=== PATIENT | male | born 1970 | race Hispanic/Latino ===

== ENCOUNTER 2019-03-11 09:11 | Inpatient (IN) | payer OTHER ==
[2019-03-11] MEDS ORDERED: Iopamidol 370 76% 100 ML VIAL ONE (09:54)
--- NOTE | 2019-03-11 11:16 | PDOC.FPRHP ---
- History of Present Illness Chief Complaint: Chest Pain History of Present Illness: 48yo male with h/o HLD, HTN, DMII presents for typical chest pain. Pt states he had acute onset of substernal, pressure-like pain, rated 9/10, radiating to jaws at 0630 this AM. No associated SOB, n/v. Associated diaphoresis. Presented to [place] ED. Given ASA, Plavix, and Nitro SL and started on Nitro gtt. Pain as improved to 6/10 per pt but still present without radiation or diaphoresis. No similar pain in past. No abd pain. Recent illness, fever/ chills. Pt states he is a binge drinker, last drink last night, 30+ beers, has had withdrawals in past. No vomiting, coughing up blood, burning chest pain. No known passing out last night. ED Course: [place] - ASA, Plavix, Nitro SL, and nitro gtt [facility] - Cont nitro gtt, Cards consulted, trop trending. - Home Medications Medication Instructions Recorded Confirmed Type Amlodipine [Norvasc] 5 mg PO DAILY 03/11/19 03/11/19 History Aspirin [Ecotrin] 81 mg PO DAILY 03/11/19 03/11/19 History Atorvastatin Calcium [Lipitor] 40 mg PO DAILY 03/11/19 03/11/19 History Glimepiride [Amaryl] 3 mg PO QAM- 03/11/19 03/11/19 History Lisinopril 30 mg PO DAILY 03/11/19 03/11/19 History Sertraline HCl [Zoloft] 75 mg PO DAILY 03/11/19 03/11/19 History busPIRone HCl [Buspar] 5 mg PO BID 03/11/19 03/11/19 History metFORMIN [Glucophage] 1,000 mg PO BID- 03/11/19 03/11/19 History - History PMHx: DMII, HTN, HLD, DMII PSHx: None FHx: Dad with NE @ 88, Mom with NE @ 60 Social: Social smoker "smoke when he drinks." Binge drinker, last drink last night, 30+ beers, has had withdrawals in past. No illicit. . Lives in [place]. - Review of Systems General: denies: fever/chills, weight/appetite/sleep changes, night sweats Eyes: denies: vision changes ENT: denies: nasal congestion, rhinorrhea Respiratory: denies: cough, congestion, shortness of breath Cardiovascular: reports: chest pain. denies: palpitation, edema Gastrointestinal: denies: nausea, vomiting, diarrhea, constipation, abdominal pain, GI bleeding Genitourinary: denies: incontinence, dysuria Skin: denies: rashes Musculoskeletal: denies: pain Psychological: reports: depression - Vital signs BP: 143/76 HR: 70 RR: 18 Tmax: 97.8 Pox: 99% on RA Wt: 97kg - Physical Exam Constitutional: NAD, awake, alert and oriented, well developed (resting comfortably.) HEENT: EOMI, conjunctiva clear, grossly normal hearing, normal nasal mucosa, MMM , oropharynx clear Neck: supple, trachea midline Chest: no-tender to palpation Heart: RRR, normal S1/S2, no murmurs/rubs/gallops, pulses present (slightly decrease in RUE as compared to LUE however has scar over R radial pulse.), no edema Lungs: CTAB, no respiratory distress, good air movement, no rales/rhonchi, no wheezing Abdomen: soft, non-tender, bowel sounds present, no masses/distention Musculoskeletal: normal structure, normal tone Neurological: no focal deficit, normal sensation Skin: no rash/lesions Heme/Lymphatic: no unusual bruising or bleeding Psychiatric: normal mood and affect, intact recent and remote memory FMR H&P: Results - EKG Interpretation EKG: NSR. Good R wave progression. No ST or T wave changes. Normal axis. Normal EKG. - Radiology Interpretation Chest x-ray Status: image reviewed by me, report reviewed by me (No acute CPP) FMR H&P: A/P - Problem List (1) Unstable angina Current Visit: Yes Status: Acute (2) HTN (hypertension) Current Visit: Yes Status: Chronic Code(s): I10 - ESSENTIAL (PRIMARY) HYPERTENSION Qualifiers: Hypertension type: essential hypertension Qualified Code(s): I10 - Essential (primary) hypertension (3) DM2 (diabetes mellitus, type 2) Current Visit: Yes Status: Chronic Qualifiers: Diabetes mellitus ocean transportation intermediary insulin use: without ocean transportation intermediary use (4) HLD (hyperlipidemia) Current Visit: Yes Status: Chronic Code(s): E78.5 - HYPERLIPIDEMIA, UNSPECIFIED - Plan 48yo M with h/o HTN, HLD, DMII presents with unstable angina. #Unstable angina - sxs started this AM, typical, substernal, partial relieved with nitro but still present on nitro gtt - Trop <0.010 -> 0.017 - EKG WNL, no ST or T wave changes - Cards consulted from ED, Dr. Carpenter, plan to cath, apprec recs - Trend trops, tele monitoring - CXR no acute CPP - Consider GI cause, will give GI cocktail if no cardiac disease #HTN - Cont home meds, monitor #DMII - Hyperglycemic protocol - ACHS accuchecks, cont home meds #EtOH abuse - ASE protocol - EtOH lv #Depression - cont home meds Code: Full IVF: SL Diet: NPO for cath, HH/CC after DVT: SCDs PCP: CC - Dr. Schmitz in [place] Dispo: Admit to tele vs ICU pending heart cath. Anticipate hospitalization > 48hours. FMR H&P: Upper Level - Plan Date/Time: 03/11/19 1115 I, Reinier Tapia MD, have evaluated this patient and agree with findings/ plan as outlined by chief internal auditor resident. Pertinent changes/additions are listed here. Unstable Angina - Nitro drip currently - Patient to undergo heart catheterization emergently by Dr. Carpenter - Further management pending those results Alcohol abuse - Will draw alcohol level - ASE protocol DM, HTN, HLD - Continue home regimen and optimize medical management PCP: GERI/[facility] CODE STATUS: FULL CODE Disposition: Stable, will await results of catheterization and admit for further evaluation. Addendum - Attending - Attending Attestation Date/Time: 03/11/19 1100 I personally evaluated the patient and discussed the management with Dr. Sood/ Willie. I agree with the History, Examination, Assessment and Plan documented above with any addition or exceptions noted below. Patient with history of HTN, DM2, and HLD here with sudden onset of typical chest pain with radiation to jaw. He denies shortness of breath. Symptoms somewhat improved with NItro but recurred so placed on nitro drip and transferred here. His exam is overall benign. Labs reassuring. EKG shows NSR with no ST segment changes. Cardiology consulted due to concern for UA or ACS, and he will be going directly to the labor conciliator. Further mgmt per that result.
[2019-03-11] MEDS ORDERED: Lidocaine 1% (PF) 30 ML VIAL ONE (11:41)
[2019-03-11] MEDS ORDERED: Heparin (Artline) 1,000 ML ONE (11:41)
[2019-03-11] MEDS ORDERED: Midazolam HCl 2 mg/2 ml Vial ONE (12:31)
[2019-03-11] MEDS ORDERED: Nitroglycerin 0.4 MG TAB (25 Tab Bottle) SL PRN (12:57)
[2019-03-11] MEDS ORDERED: Sodium Chloride 0.9% 200 ML IV PRN (12:57)
[2019-03-11] MEDS ORDERED: Acetaminophen/Codeine 30-300mg Tablet PO PRN ×2 (12:57)
[2019-03-11] MEDS ORDERED: Acetaminophen 325 MG TAB PO PRN (13:46)
[2019-03-11] MEDS ORDERED: Calcium Carbonate 500 MG ChewTAB PO PRN (13:46)
[2019-03-11] MEDS ORDERED: HumaLOG 300 UNITS/3 ML VIAL SC PRN ×2 (13:46)
[2019-03-11] MEDS ORDERED: Dextrose 5% in Water 1,000 ML IV PRN (13:46)
[2019-03-11] MEDS ORDERED: Dextrose 50% Abboject 50 ML SYRINGE SLOW IVP PRN (13:46)
[2019-03-11 14:48] LABS: Troponin I 0.018 ng/mL (< 0.028)
[2019-03-11 15:58] VITALS: BMI 29.8
--- NOTE | 2019-03-11 16:08 | CON ---
DATE OF CONSULTATION: HISTORY OF PRESENT ILLNESS: The patient is a pleasant 48-year-old gentleman, who presents with the acute onset of substernal chest discomfort. The patient was in his usual state of health when he developed the acute onset of midsternal chest discomfort. He states that since this morning the discomfort has been continuous. The chest pain does not radiate. The patient was started on IV nitroglycerin and his chest pain has been less severe, but has continued. PAST MEDICAL HISTORY: 1. Diabetes mellitus. 2. Hypertension. 3. Dyslipidemia. PAST SURGICAL HISTORY: None. SOCIAL HISTORY: Long history of tobacco abuse ALLERGIES: NO KNOWN DRUG ALLERGIES. FAMILY HISTORY: Positive family history, mother had coronary artery disease. REVIEW OF SYSTEMS: Unremarkable. PHYSICAL EXAMINATION: GENERAL/VITAL SIGNS: Obese gentleman, in no acute distress with a blood pressure of 126/70, on nitroglycerin. NECK: No jugular venous distention. LUNGS: Clear to auscultation. HEART: Regular rate and rhythm. Normal S1 and S2. No murmurs. ABDOMEN: Nondistended. EXTREMITIES: No edema. VASCULAR: Radial pulses are 2+. Right femoral pulses 2+. LABORATORY RESULTS: White blood cell count 9.8, hemoglobin 15.3, hematocrit 45.7, and platelets 192. Sodium 140, potassium 4.3, chloride 107, bicarbonate 23, BUN 14, and creatinine 0.86. Troponin less than 0.01. EKG revealed normal sinus rhythm with premature ventricular contractions, nonspecific ST abnormality. IMPRESSION: 1. Chest pain with some features suggestive of angina. 2. Hypertension. 3. Diabetes mellitus. 4. Dyslipidemia. 5. Tobacco abuse. 6. Ethanol abuse. This gentleman presents with persistent chest pain. From a cardiac standpoint, I discussed the option of medical therapy versus an invasive evaluation. The patient prefers to have a definitive diagnosis. I explained the risks involved in cardiac catheterization including DC, bleeding, stroke, cardiac arrhythmia, and cardiac . The patient understands these risks and wished to proceed. PLAN: Proceed with cardiac catheterization Job ID: [id number] [facility]
[2019-03-11 16:43] LABS: Troponin I 0.018 ng/mL (< 0.028)
[2019-03-11] MEDS: busPIRone HCl 5 MG TAB PO SCH (20:16)
[2019-03-11] MEDS: Famotidine 20 MG TAB PO SCH (20:16)
[2019-03-12 04:56] LABS: #Eosinphils 0.5 thou/uL (0.0-0.7); #Lymphocytes 1.9 thou/uL (1.20-3.40); #Monocytes 0.6 thou/uL (0.11-0.59); %Basophils 0.6 % (0.0-1.0); %Eosinophils 6.8 % (0.0-10.0); %Lymphocytes 23.1 % (21.0-51.0); %Monocytes 7.7 % (0.0-10.0); %Neutrophils 61.9 % (42.0-75.0); Hemoglobin 14.5 g/dL (14.0-18.0); Mean Corpuscular HGB CONC 34.6 g/dL (32.0-36.0); Mean Corpuscular Hemoglobin 33.2 pg (27.0-31.0); Mean Corpuscular Volume 95.9 fL (78.0-98.0); Mean Platelet Volume 6.8 fL (7.4-10.4); Platelet Count 176 thou/uL (130-400); RBC Distribution Width 11.3 % (11.5-14.5); Red Blood Cell (RBC) Count 4.37 mill/uL (4.70-6.10)
[2019-03-12 05:17] LABS: ALT (SGPT) 32 U/L (8-55); AST (SGOT) 15 U/L (5-34); Albumin 4.2 g/dL (3.5-5.0); Alkaline Phosphatase 74 U/L (40-110); Anion Gap 11 mmol/L (10-20); BUN (Urea Nitrogen) 12 mg/dL (8.9-20.6); Bilirubin, Total 0.7 mg/dL (0.2-1.2); Calc. Creatinine Clearance 163 mL/min (70-130); Calcium 8.6 mg/dL (7.8-10.44); Carbon Dioxide 26 mmol/L (22-29); Chloride 105 mmol/L (98-107); Estimated GFR-MDRD Greater than 90; Globulin 2.4 g/dL (2.4-3.5); Glucose 128 mg/dL (70-105); Potassium 3.9 mmol/L (3.5-5.1); Protein, Total 6.6 g/dL (6.0-8.3); Sodium 138 mmol/L (136-145)
--- NOTE | 2019-03-12 06:56 | PDOC.FM ---
- Subjective Subjective: Doing very well this morning. No acute events overnight, no concerns for this morning. Tolerated heart cath well yesterday. Results were negative. Had complete resolution of CP some time after cath. Current asx, with no fever/ chills, CP, SOB, n/v, abd pain. Tolerating PO well. Voiding normally. Eager for discharge. - Objective MAR Reviewed: Yes Vital Signs & Weight: Vital Signs (12 hours) Temp Pulse Resp BP Pulse Ox 03/12/19 03:44 97.6 F 68 18 127/77 99 03/11/19 20:25 96 03/11/19 20:00 97.7 F 73 16 112/60 96 Weight Weight 97 kg I&O: 03/10/19 03/11/19 03/12/19 06:59 06:59 06:59 Intake Total 240 Balance 240 Result Diagrams: 03/12/19 04:15 03/12/19 04:15 EKG Reviewed by me: Yes (Tele: NSR) Phys Exam - Physical Examination Constitutional: NAD (resting comfortably in bed, good spirits) HEENT: moist MMs Neck: supple Respiratory: no wheezing, no rales, no rhonchi, clear to auscultation bilateral Cardiovascular: RRR, no significant murmur, no rub Gastrointestinal: soft, non-tender, no distention, positive bowel sounds Musculoskeletal: no edema, pulses present Neurological: non-focal Psychiatric: normal affect, A&O x 3 Dx/Plan (1) Unstable angina Status: Resolved (2) HTN (hypertension) Code(s): I10 - ESSENTIAL (PRIMARY) HYPERTENSION Status: Chronic Qualifiers: Hypertension type: essential hypertension Qualified Code(s): I10 - Essential (primary) hypertension (3) DM2 (diabetes mellitus, type 2) Status: Chronic Qualifiers: 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 #Unstable angina, resolved - sxs started AM of admission, typical, substernal, partial relieved with nitro but still present on nitro gtt - Trop <0.010 -> 0.017 -> 0.018 -> 0.018 - EKG WNL, no ST or T wave changes - Cards consulted from ED, Dr. Carpenter, underwent cardiac cath, clean cath, apprec recs and assistance - No acute events on tele - CXR no acute CPP - Possible GI cause as Pepcid did improve pain, will d/c on 2 wk course of pepcid to f/u with PCP #HTN - Cont home meds, monitor #DMII - Hyperglycemic protocol - ACHS accuchecks, cont home meds, holding metformin 2/2 cardiac cath contrast use #EtOH abuse - ASE protocol - BAL < 10. No s/s of acute withdrawal or DTs. #Depression - cont home meds Code: Full IVF: SL Diet: HH DVT: SCDs PCP: CC - Dr. Schmitz in [place] Dispo: Admitted to tele post cardiac cath. Cath was clean. Suspected GI cause of CP. Cont pepcid. Cards recs. Anticipate discharge today. Addendum - Attending - Attending Attestation Date/Time: 03/12/19 1041 I personally evaluated the patient and discussed the management with Dr. Sood. I agree with the History, Examination, Assessment and Plan documented above with any addition or exceptions noted below. Patient doing well. Clean cath yesterday. No more chest pain. Stable for d/c.
[2019-03-12] MEDS: busPIRone HCl 5 MG TAB PO SCH (08:32)
[2019-03-12] MEDS: Famotidine 20 MG TAB PO SCH (08:32)
[2019-03-12 08:33] VITALS: BP 134/73
[2019-03-12] MEDS ORDERED: Lisinopril 10 MG TAB PO SCH (09:00)
[2019-03-12] MEDS ORDERED: Aspirin 81 mg Enteric Coated Tablet PO SCH (09:00)
[2019-03-12] MEDS ORDERED: Amlodipine 5 MG TAB PO SCH (09:00)
[2019-03-12 09:38] VITALS: TEMP 98
[2019-03-12] MEDS ORDERED: Icosapent Ethyl 1 GM CAPSULE PO SCH (21:00)
[2019-03-12] MEDS ORDERED: Atorvastatin Calcium 40 MG TAB PO SCH (21:00)
--- NOTE | 2019-03-13 08:49 | DIS ---
DATE OF ADMISSION: 03/11/2019 DATE OF DISCHARGE: 03/12/2019 RESIDENT: Dr. Rai Sood. ADMITTING ATTENDING: Dr. Colt Sanabria MD DISCHARGE ATTENDING: Dr. Colt Sanabria MD CONSULTS: Cardiology, Dr. Carpenter. PROCEDURES: Cardiac catheterization on 03/11/2019 demonstrating no lesions or stenosis of coronary arteries. PRIMARY DIAGNOSES: 1. Unstable angina, ruled out. 2. Gastroesophageal reflux disease. SECONDARY DIAGNOSES: 1. Hypertension. 2. Type-2 diabetes. 3. Alcohol abuse. 4. Depression. DISCHARGE MEDICATIONS: 1. Metformin 1 g p.o. b.i.d. 2. BuSpar 5 mg p.o. b.i.d. 3. Zoloft 75 mg p.o. daily. 4. Lisinopril 30 mg p.o. daily. 5. Amaryl 3 mg p.o. q.a.m. 6. Atorvastatin 40 mg p.o. daily. 7. Aspirin 81 mg p.o. daily. 8. Norvasc 5 mg p.o. daily. 9. Pepcid 20 mg p.o. b.i.d. x2 weeks. 10. Vascepa 2 g p.o. b.i.d. HISTORY OF PRESENT ILLNESS AND HOSPITAL COURSE: The patient is a 48-year-old male with a past medical history of diabetes, hypertension, hyperlipidemia, who presented for typical chest pain. The patient stated that the pain was acute onset, substernal, pressure-like, rated at 9/10, radiating to his jaw at approximately 06:30 a.m. in the morning of admission. He has no associated shortness of breath , nausea, or vomiting. Did have associated diaphoresis. He presented to [place] emergency department, where he was given aspirin, Plavix, and nitroglycerin sublingual, started on a nitroglycerin drip. His pain did improve from 6 to 10 but still present without radiation or diaphoresis. He has had no similar pain in the past. No recent illnesses, fevers, or chills, and pain was not changed by p.o. intake. Of note, the patient stated that he is a binge drinker. Last drink was last night 30 plus beers and he has had withdrawals in the past. He denied any vomiting, coughing up blood, burning chest pain, or passing out last night. In the ED, he was continued on nitroglycerin drip. Cardiology was consulted and troponins were trended. His EKG was within normal limits and troponins were negative. Cardiology came and evaluated the patient, who discussed risks, benefits, and alternatives of cardiac catheterization for evaluation of typical chest pain and unstable angina. The patient wished to proceed with cardiac catheterization for definitive answers. Cardiac catheterization was performed by Dr. Carpenter and the patient tolerated the procedure well. The catheterization was negative. Per the patient report, his pain continued slightly after cardiac catheterization and then resolved sometime through the evening. Overnight, the patient did well and did not have any acute events, was monitored on telemetry with no arrhythmias. He had no return of chest pain and his symptoms completely resolved. It was discussed with the patient that his chest pain did not appear to be cardiac in nature and could have been anxiety or GERD. Discussed with the patient to continue Pepcid twice daily for 2 weeks and to follow up with primary care provider. Cardiology came and cleared the patient for discharge as well. Regarding the patient's chronic medical conditions, his blood pressure medications were continued. His diabetes medicines were continued, to hold metformin for 3 days post catheterization. The patient was encouraged to cut back and eventually quit his alcohol abuse as this could be contributing to some of his problems. Discharge plan was discussed with the patient, who voiced agreement and understanding discharge plan. was present at bedside. The patient was stable at the time of discharge with no symptoms. All questions were answered appropriately. DISPOSITION: Stable. DISCHARGE INSTRUCTIONS: 1. Location: Home. 2. Diet: Regular as tolerated. 3. Activity as tolerated. 4. Followup: The patient is to follow up with primary care provider within [address] Carpenter as directed. Job ID: [id number] [facility]
== END 2019-03-12 12:01 | disposition home or self-care (01) | DRG 392 ==
LOC: ERS 09:11 → 2NO 13:35
PROVIDERS: ADMIT Student in an Organized Health Care Education/Training Program; ATTEND Emergency Medicine
PROC: 4A023N7 Measurement of Cardiac Sampling and Pressure, Left Heart, Percutaneous Approach (ICD-10-PCS; principal; 2019-03-11)
PROC: B2111ZZ Fluoroscopy of Multiple Coronary Arteries using Low Osmolar Contrast (ICD-10-PCS; 2019-03-11)
PROC: B2151ZZ Fluoroscopy of Left Heart using Low Osmolar Contrast (ICD-10-PCS; 2019-03-11)
DX: K21.9 Gastro-esophageal reflux disease without esophagitis (principal); I10 Essential (primary) hypertension; E78.5 Hyperlipidemia, unspecified; E11.9 Type 2 diabetes mellitus without complications; F10.10 Alcohol abuse, uncomplicated; Y90.0 Blood alcohol level of less than 20 mg/100 ml; F32.9 Major depressive disorder, single episode, unspecified; F17.200 Nicotine dependence, unspecified, uncomplicated; F41.9 Anxiety disorder, unspecified
CPT/HCPCS: 36415; 36416; 76942; 80053; 80307; 85025; 93005; 93458; 94760; 96365; 96366; 99152; 99153; C1769; J1644; J2001; J2250; Q9967